=== PATIENT | male | born 1940 | race Caucasian/White ===

== ENCOUNTER 2017-07-20 18:45 | Observation (INO) ==
--- NOTE | 2017-07-20 23:07 | Internal Med History&Physical ---
Date of Encounter: 07/20/17 Time of Encounter: 23:04 Assessment and Plan (1) Vertigo Current visit: Yes Status: Acute Patient presents with symptoms of vertigo gait unsteadiness nausea and vomiting. Reportedly CTAs scan of the brain showed no evidence of bleed. Get MRI of the brain in a.m and check echocardiogram carotid Doppler given his age. NIH stroke scale on my exam is 0. will start the patient for now on aspirin and Aylin. (2) Hypothyroidism Current visit: Yes Status: Acute Continue levothyroxine. Check TSH. Qualifiers: Qualified Code(s): E03.9 - Hypothyroidism, unspecified Internal Medicine - H&P: HPI Chief complaint: dizziness History of present illness: Mr. Munoz is a 76 year old male with a history of hypothyroidism presents to the emergency room today with a main component of dizziness. Since yesterday patient started noticing dizziness which he describes as "things moving", addition to nausea vomiting and gait unsteadiness. He mentioned that he had to hold onto johnson in order to ambulate. He denies any focal weakness, tingling or numbness in any extremity, facial symmetry or speech sluriness. No prior similar history. No relation of symptoms to a specific position. No recent febrile illness. Past Med Surg Social Fam HX - Past Medical History Medical history: thyroid disease Psychiatric history: no psych history - Past Surgical History Surgical History: non-contributory - Social History Smoking Status: Never smoker Alcohol use: none Drug use: none - Family History Father Adopted: [place]: [place] Family Member Ethnicity: Non- Living Status: Age at : 66 Cause of : PROSTATE CANCER Hx Family Cardiac Disorders: No Hx Family Respiratory Disorders: No Hx Family Cancer: Yes Hx Family GI Disorders: No Hx Family Genitourinary Disorders: No Hx Family Endocrine Disorder: No Hx Family Musculoskeletal Disorders: No Hx Family Neuromuscular Disorders: No Hx Family Neurologic Disorders: No Hx Family HEENT Disorders: No Hx Family Autoimmune Disorders: No Hx Family Reproductive Disorders: No Hx Family Psychosocial Disorders: No Hx Family Medical Disorders: No Internal Medicine - H&P: Meds Levothyroxine [Synthroid] 100 mcg PO DAILY 07/20/17 [History] 3 Allergy/AdvReac Type Severity Reaction Status Date / Time No Known Allergies Allergy Verified 07/20/17 21:00 All Systems PM: A 10-system review of systems was performed and is negative for pertinent findings except as documented above in the HPI. Review of systems: 10 point review of systems is negative except for HPI - Constitutional Vitals: Temp Pulse Resp BP Pulse Ox 97.5 F L 113 16 144/81 98 07/20/17 21:25 07/20/17 21:25 07/20/17 21:25 07/20/17 21:25 07/20/17 21:25 Exam: Gen.: patient is alert oriented times 3 not in distress cardiac: Normal S1, S2, no additional sounds or murmurs chest: Clear to auscultation Abdomen: Soft, no tenderness No rebound lower extremity Lax calf muscles no swelling Neuro: no focal deficits, finger to nose and heel to jason intact
[2017-07-21 04:01] LABS: Basophils % 0.5 %; Eosinophils # 0.1 K/mcL (0.0-0.6); Eosinophils % 1.7 %; Hematocrit 40.1 % (37.5-50.1); Hemoglobin 14.1 g/dL (12.9-16.9); Immature Granulocytes % 0.2 % (0-4); Lymphocytes % 23.8 %; Mean Corpuscular HGB Conc 35.2 g/dL (31.6-35.5); Mean Corpuscular Hemoglobin 32.9 pg (28.0-33.3); Mean Corpuscular Volume 93.5 fL (83.0-100.0); Mean Platelet Volume 10.6 fL (9.4-12.4); Monocytes # 0.9 K/mcL (0.0-1.3); Monocytes % 10.9 %; Neutrophils # 5.3 K/mcL (1.6-8.9); Platelet Count 186 K/mcL (140-400); Red Blood Count 4.29 M/mcL (4.19-5.50); Red Cell Distribution Width 12.6 % (11.5-14.5); Segmented Neutrophils % 62.9 %
[2017-07-21 04:19] LABS: BUN/Creatinine Ratio 18 (6-26); Blood Urea Nitrogen 16 mg/dL (8-26); Calcium 9.1 mg/dL (8.6-10.8); Carbon Dioxide 26 mEq/L (19-29); Chloride 108 mEq/L (98-109); Chol/HDL Ratio 4.7 (0-4.9); Cholesterol 203 mg/dL (< 200); Glucose 81 mg/dL (70-99); HDL Cholesterol 43 mg/dL (40-59); LDL Cholesterol,Calculated 145 mg/dL (0-99); Magnesium 1.9 mg/dL (1.6-2.6); Osmolality,Calculated 292 (280-300); Potassium 3.7 mEq/L (3.5-4.5); Sodium 141 mEq/L (136-145); Triglycerides 77 mg/dL (< 150); eGFR For African Americans > 60 (> 60); eGFR For Non-African Americans > 60 (> 60)
[2017-07-21] MEDS ORDERED: *HR* Heparin 5,000 UNIT/ML VIAL SQ SCH (06:00)
[2017-07-21] MEDS: Aspirin Enteric Coated 81 MG Tablet PO SCH (10:17)
--- NOTE | 2017-07-21 15:56 | Internal Med Progress Note ---
Date of Encounter: 07/21/17 Time of Encounter: 12:30 - Assessment and plan (1) Vertigo Current Visit: Yes Status: Acute Assessment and plan: Cr Forde is a 76-year-old male with past medical history hypothyroidism who presented to [facility] on 07/20/2017 with complaints of nausea vomiting and lightheadedness area and he was placed in observation status for TIA workup/CVA rule out. 1. Vertigo: With reported sensation of feeling lightheaded with room moving. Symptoms resolved prior to arrival. Possibly secondary to dehydration as patient had emesis with inability to tolerate PO prior to arrival. There was concern for TIA/CVA on arrival. Head CT negative. Echo with normal EF, no PFO or cardiac source of emboli noted. Bilateral carotid Dopplers negative. LDL 145. Continue ASA, statin. Brain MRI, Hgb A1c pending. 2. Nausea vomiting: For 2 days prior to presentation. Now resolved. Possible gastroenteritis. Patient tolerating regular diet at this time without nausea or vomiting. Monitor. No further workup at this time 3. Hypothyroidism: Per history. TSH 6.9. Suspect subclinical hypothyroidism. Continue home levothyroxine. Free T3, T4 pending 4. DVT prophylaxis: Heparin (2) Hypothyroidism Current Visit: Yes Status: Acute Qualifiers: Qualified Code(s): E03.9 - Hypothyroidism, unspecified - Subjective Interval history: Seen and family at bedside. Patient is new to me. Information obtained from chart review and patient report. He feels fine now, back to baseline. He reports nausea vomiting with lightheadedness on Saturday. [place] a little better on Saturday but symptoms persisted so he presented to hospital. Has no complaints of my exam, specifically denies numbness tingling, no vision changes , no headaches, no chest pain, no shortness of breath - Constitutional Vitals: Temp Pulse Resp BP Pulse Ox 98.2 F 70 16 123/69 100 07/21/17 15:08 07/21/17 15:08 07/21/17 15:08 07/21/17 15:08 07/21/17 15:08 General appearance: Present: A&O X 3, no acute distress, answers questions appropriately - Head Head exam: Present: atraumatic, normocephalic - Eye Eye exam: Present: PERRL, conjuntiva pink, sclera anicteric Pupils: Present: PERRL - Neck Neck exam general surgery: Present: supple, trachea midline. Absent: lymphadenopathy - Respiratory Respiratory exam: Present: CTAB. Absent: accessory muscle use, rales, rhonchi, wheezes - Cardiovascular Cardiovascular exam: Present: RRR, +S1, +S2. Absent: diastolic murmur, gallop, rubs, systolic murmur - GI/Abdominal GI/Abdominal exam: Present: normal bowel sounds, soft, no peritoneal signs. Absent: distended, tenderness - Extremities Exam Extremities exam: Present: warm, radial pulses palpable and symmetrical. Absent : calf tenderness, cyanotic, pedal edema - Neurological Exam Neurological exam: Present: CN II-XII intact, oriented X3, no focal deficits. Absent: pronater drift, facial droop, speech deficit - Skin Skin exam: Present: dry, intact Internal Medicine: Result - Labs CBC & Chem 7: 07/21/17 03:06 07/21/17 03:06 Labs: Short CBC 07/21/17 Range/Units 03:06 WBC 8.4 (4.3-11.1) K/mcL Hgb 14.1 (12.9-16.9) g/dL Hct 40.1 (37.5-50.1) % Plt Count 186 (140-400) K/mcL Neutrophils # 5.3 (1.6-8.9) K/mcL BMP 07/21/17 03:06 Sodium 141 Potassium 3.7 Chloride 108 Carbon Dioxide 26 BUN 16 Creatinine 0.89 Glucose 81 Calcium 9.1 - Impressions Impressions Echocardiogram 07/20/17 23:02 Impressions: Normal LV systolic function, LVEF 65%. Mild left ventricular diastolic dysfunction. Normal right ventricular size and function. No significant valvular dysfunction. No evidence of pulmonary hypertension. Left Ventricular Wall Motion: Rest Echo Findings All wall segments showed normal motion. Findings: Study Quality * Technically adequate exam. ECG Findings * Normal sinus rhythm. Left Ventricle * Normal LV systolic function, LVEF 65%. * Normal LV chamber size and wall thickness. * Mild left ventricular diastolic dysfunction. Right Ventricle * Normal right ventricular size and function. Left Atrium * Normal left atrial size. Right Atrium * Normal right atrial size. Aorta * Normally sized aortic root. Pericardium * There is no pericardial effusion present. IVC * The IVC is not well evaluated. Aortic Valve * Trileaflet aortic valve. * No aortic stenosis. * Trace aortic regurgitation. Mitral Valve * Normal mitral valve structure. * No mitral stenosis. * Trace mitral regurgitation. Tricuspid Valve * Normal tricuspid valve structure. * No tricuspid stenosis. * Trace tricuspid regurgitation. * No evidence of pulmonary hypertension. Pulmonic Valve * Pulmonic valve not well visualized. * No pulmonic stenosis. * No pulmonic regurgitation. - VTE Documentation of Mechanical Device: Graduated compression elastic hosiery Consult Discharge Plan - Plan Referrals: Susan Martinez [Primary Care Provider] -
[2017-07-21] MEDS: *HR* Heparin 5,000 UNIT/ML VIAL SQ SCH (21:18)
[2017-07-22 03:02] VITALS: BP 146/71
[2017-07-22 04:11] LABS: Hematocrit 36.7 % (37.5-50.1); Mean Corpuscular HGB Conc 35.4 g/dL (31.6-35.5); Mean Corpuscular Hemoglobin 33.4 pg (28.0-33.3); Mean Corpuscular Volume 94.3 fL (83.0-100.0); Mean Platelet Volume 10.7 fL (9.4-12.4); Platelet Count 168 K/mcL (140-400); Red Blood Count 3.89 M/mcL (4.19-5.50); Red Cell Distribution Width 12.5 % (11.5-14.5)
[2017-07-22 04:25] LABS: Hemoglobin A1C 5.2 %
[2017-07-22 04:34] LABS: Alanine Aminotransferase 21 Units/L (0-55); Albumin 3.2 g/dL (3.5-5.0); Albumin/Globulin Ratio 1.1 (1.1-2.2); Alkaline Phosphatase 45 Units/L (38-126); Aspartate Amino Transferase 64 Units/L (5-34); BUN/Creatinine Ratio 19 (6-26); Bilirubin,Total 0.8 mg/dL (0.2-1.2); Blood Urea Nitrogen 19 mg/dL (8-26); Calcium 8.6 mg/dL (8.6-10.8); Carbon Dioxide 23 mEq/L (19-29); Chloride 107 mEq/L (98-109); Globulin 2.8 g/dL (2.4-3.5); Glucose 89 mg/dL (70-99); Osmolality,Calculated 288 (280-300); Potassium 3.6 mEq/L (3.5-4.5); Sodium 138 mEq/L (136-145); eGFR For African Americans > 60 (> 60); eGFR For Non-African Americans > 60 (> 60)
[2017-07-22 04:48] LABS: Triiodothyronine (T3) Free 1.71 pg/mL (1.71-3.71)
[2017-07-22] MEDS: *HR* Heparin 5,000 UNIT/ML VIAL SQ SCH (06:11)
[2017-07-22] MEDS: Aspirin Enteric Coated 81 MG Tablet PO SCH (09:00)
--- NOTE | 2017-07-22 10:12 | Discharge Summary ---
Date of Encounter: 07/22/17 Time of Encounter: 10:05 - Discharge Diagnosis (1) Vertigo Priority: Primary Status: Acute Comments: Cr Forde is a 76-year-old male with past medical history hypothyroidism who presented to [facility] on 07/20/2017 with complaints of nausea vomiting and lightheadedness area and he was placed in observation status for TIA workup/CVA rule out. He had a negative work-up and was discharged home in stable condition with outpatient follow-up. 1. Vertigo: With reported sensation of feeling lightheaded with room moving. Symptoms resolved prior to arrival. Possibly secondary to dehydration as patient had emesis with inability to tolerate PO prior to arrival. Head CT negative. Brain MRI with scattered increased T2 and FLAIR signal and white matter, suggestive of small vessel ischemic change. Negative for acute infarct , mass or hemorrhage. Echo with normal EF, no PFO or cardiac source of emboli noted. Bilateral carotid Dopplers negative. Recommend continuing ASA and outpatient follow-up with neurology. 2. Hyperlipdemia: LDL 145, statin started during hospitalization however patient declined at discharge. He prefers diet/lifestyle modifications first. Recommend repeat lipid panel in 3-6 months with PCP 3. Nausea vomiting: For 2 days prior to presentation. Now resolved. Possible gastroenteritis. Patient tolerating regular diet at this time without nausea or vomiting. No further workup at this time 4. Hypothyroidism: Per history. TSH 6.9. Free T3, T4 normal. Suspect subclinical hypothyroidism. Continue home levothyroxine. Recommend repeat TSH in 6-8 weeks with PCP (2) Hypothyroidism Priority: Primary Status: Acute Qualifiers: Hypothyroidism type: acquired Qualified Code(s): E03.9 - Hypothyroidism, unspecified - Discharge Medications Prescriptions: Aspirin Enteric Coated [Aspirin EC] 81 mg PO DAILY #30 tablet. Home Medications: Levothyroxine [Synthroid] 100 mcg PO DAILY 07/20/17 [History] Aspirin Enteric Coated [Aspirin EC] 81 mg PO DAILY #30 tablet. 07/22/17 [Rx] Allergies/Adverse Reactions: 3 Allergy/AdvReac Type Severity Reaction Status Date / Time No Known Allergies Allergy Verified 07/20/17 21:00 Procedures/tests Complete & Pending: Procedures Performed prior 72 hours Category Date Time Status MR head/brain wo con [MR] Routine MRI 07/21/17 01:00 Completed EV carotid duplex imaging BI Routine Y 07/20/17 23:02 Completed EV echocardiogram Routine Y 07/20/17 23:02 Completed Date of admission: 07/20/17 20:36 Primary care physician: Rosa Isela Provider Consults: 07/20/17 23:02 Consult to Occupational Therapy [CONS] Routine Comment: Evaluate, develop and implement POC Reason for Consult: weakness Consult to Physical Therapy [CONS] Routine Comment: Evaluate, develop and implement POC Reason for Consult: dizziness Discharging clinician: Natividad Graham Anticipated date of discharge: 07/22/17 - Patient Status Disposition: Home, Self-Care Condition: Good Functional capacity at discharge: independent ambulation Overall status at discharge: patient is back to baseline - Discharge Instructions Instructions: Hyperlipidemia (DC), Dizziness (GEN) Follow Up With: Susan Martinez [Primary Care Provider] - Fallon Altamirano MD [Partnered Physician] - Additional Instructions: Follow Up Appointment 1. Please call your Primary care physician's office within 24 hours or next business day to schedule a follow up appointment. 2. Please follow-up with Neurology within 1-2 weeks. - Diet and Activity Activity: increase activity as tolerated, resume usual activities as tolerated Diet: low fat, low cholesterol Interval History: Seen and examined at bedside, patient says he is back to baseline and wants to go home. All sx's resolved. He has no complaints, he specifically denies headache, no numbness or tingling, no lightheadedness, no chest pain or SOB. Discussed brain MRI with Dr. Torrez and will discharge home on ASA with outpatient Neurology follow-up. Hospital course: See assessment and plan for hospital course - Time Spent with Patient Total time spent providing and/or coordinating discharge services: Less than 30 minutes - Constitutional Vitals: Temp Pulse Resp BP Pulse Ox 98.0 F 55 12 146/71 98 07/22/17 02:59 07/22/17 02:59 07/22/17 02:59 07/22/17 02:59 07/22/17 02:59 General appearance: Present: A&O X 3, no acute distress, answers questions appropriately - Head Head exam: Present: atraumatic, normocephalic - Eye Eye exam: Present: PERRL, conjuntiva pink, sclera anicteric Pupils: Present: PERRL - Neck Neck exam general surgery: Present: supple, trachea midline. Absent: lymphadenopathy - Respiratory Respiratory exam: Present: CTAB. Absent: accessory muscle use, rales, rhonchi, wheezes - Cardiovascular Cardiovascular exam: Present: RRR, +S1, +S2. Absent: diastolic murmur, gallop, rubs, systolic murmur - GI/Abdominal GI/Abdominal exam: Present: normal bowel sounds, soft, no peritoneal signs. Absent: distended, tenderness - Extremities Exam Extremities exam: Present: warm, radial pulses palpable and symmetrical. Absent : calf tenderness, cyanotic, pedal edema - Neurological Exam Neurological exam: Present: CN II-XII intact, oriented X3, no focal deficits. Absent: pronater drift, facial droop, speech deficit - Skin Skin exam: Present: dry, intact - VTE Documentation of Mechanical Device: Graduated compression elastic hosiery
== END 2017-07-22 11:17 | disposition home or self-care (01) ==
LOC: 3BNU
PROVIDERS: ADMIT Nurse Practitioner Acute Care; ATTEND Registered Nurse